=== PATIENT | female | born 1945 | race Caucasian/White ===

== ENCOUNTER 2020-02-11 12:14 | Inpatient (IN) ==
[2020-02-13] MEDS ORDERED: Ondansetron ODT 4 MG TAB.RAPDIS SL PRN (14:49)
[2020-02-13] MEDS ORDERED: ALPRAZolam 0.25 MG TABLET PO PRN (14:49)
[2020-02-13] MEDS: Carbidopa/Levodopa 25/100 TABLET PO SCH ×2 (16:55→20:21)
[2020-02-13] MEDS: carvediloL 6.25 MG TABLET PO SCH (16:55)
[2020-02-13] MEDS ORDERED: Bisacodyl 10 MG RECTAL SUPPOSITORY RC ONE (17:39)
[2020-02-13] MEDS: Sennosides 8.6 MG TABLET PO SCH (20:21)
[2020-02-13] MEDS ORDERED: Preparation H Ointment 57 GM TUBE RC PRN (21:30)
[2020-02-13] MEDS: Acetaminophen 325 MG TABLET PO PRN (21:42)
[2020-02-14 05:34] LABS: Basophils % 0.2 %; Eosinophils # 0.1 K/mcL (0.0-0.6); Eosinophils % 0.4 %; Hematocrit 36.6 % (35.3-44.9); Hemoglobin 12.3 g/dL (11.5-15.4); Immature Granulocytes % 0.7 % (0-4); Lymphocytes # 2.5 K/mcL (0.6-4.6); Lymphocytes % 14.7 %; Mean Corpuscular HGB Conc 33.6 g/dL (31.6-35.5); Mean Corpuscular Volume 89.3 fL (83.0-100.0); Mean Platelet Volume 9.8 fL (9.4-12.4); Monocytes # 1.2 K/mcL (0.0-1.3); Monocytes % 7.2 %; Neutrophils # 12.8 K/mcL (1.6-8.9); Platelet Count 303 K/mcL (140-400); Red Cell Distribution Width 12.4 % (11.5-14.5); Segmented Neutrophils % 76.8 %; White Blood Count 16.7 K/mcL (4.3-11.1)
[2020-02-14 05:48] LABS: Alanine Aminotransferase 31 Units/L (7-52); Albumin 3.4 g/dL (3.5-5.7); Albumin/Globulin Ratio 1.5 (1.1-2.2); Alkaline Phosphatase 43 Units/L (34-104); Aspartate Amino Transferase 26 Units/L (13-39); BUN/Creatinine Ratio 34 (6-26); Bilirubin,Total 0.3 mg/dL (0.3-1.0); Blood Urea Nitrogen 29 mg/dL (8-23); Calcium 9.3 mg/dL (8.6-10.3); Carbon Dioxide 29 mEq/L (23-29); Chloride 100 mEq/L (98-107); Globulin 2.3 g/dL (2.4-3.5); Glucose 97 mg/dL (70-105); Magnesium 2.2 mg/dL (1.6-2.6); Osmolality,Calculated 284 (280-300); Potassium 4.2 mEq/L (3.5-5.1); Sodium 134 mEq/L (136-145); Total Protein 5.7 g/dL (6.4-8.9); eGFR For African Americans > 60 (> 60); eGFR For Non-African Americans > 60 (> 60)
[2020-02-14] MEDS: *HR* Enoxaparin 30 MG/0.3 ML SYRINGE SQ SCH (05:51)
[2020-02-14] MEDS: Acetaminophen 325 MG TABLET PO PRN (05:58)
[2020-02-14] MEDS: carvediloL 6.25 MG TABLET PO SCH ×2 (07:51→14:12)
[2020-02-14] MEDS: Sennosides 8.6 MG TABLET PO SCH ×2 (07:52→20:25)
[2020-02-14] MEDS: polyethylene glycoL 3350 17 GM POWD.PACK PO SCH ×2 (07:52→12:30)
[2020-02-14] MEDS: Carbidopa/Levodopa 25/100 TABLET PO SCH ×3 (07:52→20:25)
[2020-02-14] MEDS ORDERED: predniSONE 20 MG TABLET PO SCH (09:00)
[2020-02-15 05:39] LABS: Hematocrit 34.2 % (35.3-44.9); Hemoglobin 11.4 g/dL (11.5-15.4); Mean Corpuscular HGB Conc 33.3 g/dL (31.6-35.5); Mean Corpuscular Hemoglobin 30.2 pg (28.0-33.3); Mean Corpuscular Volume 90.5 fL (83.0-100.0); Platelet Count 259 K/mcL (140-400); Red Blood Count 3.78 M/mcL (3.82-4.97); Red Cell Distribution Width 12.8 % (11.5-14.5); White Blood Count 14.3 K/mcL (4.3-11.1)
[2020-02-15] MEDS: *HR* Enoxaparin 30 MG/0.3 ML SYRINGE SQ SCH (06:12)
[2020-02-15] MEDS: Sennosides 8.6 MG TABLET PO SCH ×2 (07:46→21:50)
[2020-02-15] MEDS: polyethylene glycoL 3350 17 GM POWD.PACK PO SCH (07:46)
[2020-02-15] MEDS: carvediloL 6.25 MG TABLET PO SCH ×2 (07:53→17:29)
[2020-02-15] MEDS: Carbidopa/Levodopa 25/100 TABLET PO SCH ×3 (07:53→21:47)
[2020-02-15] MEDS: Acetaminophen 325 MG TABLET PO PRN ×2 (14:31→21:47)
[2020-02-15 14:40] LABS: Bilirubin,Urine Negative (Negative); Blood,Urine Negative (Negative); Clarity,Urine Clear (Clear); Color,Urine Yellow (Yellow); Glucose,Urine (UA) Normal (Normal); Ketones,Urine 15 mg/dL (Negative); Leukocyte Esterase,Urine Negative (Negative); Nitrite,Urine Negative (Negative); PH,Urine 5.5 pH Units (5.0-8.0); Protein,Urine 30 mg/dL (Neg-Trace); Specific Gravity,Urine 1.025 (1.010-1.025); Urobilinogen,Urine Normal (Normal)
[2020-02-15 14:43] LABS: Bacteria,Urine Few per hpf (None-Few); RBC,Urine 0-3 per hpf (0-3); Squamous Epithelial Cell,Urine Few per hpf (None-Few); WBC,Urine 0-3 per hpf (0-3)
[2020-02-16] MEDS: *HR* Enoxaparin 30 MG/0.3 ML SYRINGE SQ SCH (06:12)
[2020-02-16] MEDS: carvediloL 6.25 MG TABLET PO SCH ×2 (06:39→17:07)
[2020-02-16] MEDS: polyethylene glycoL 3350 17 GM POWD.PACK PO SCH (07:45)
[2020-02-16] MEDS: Sennosides 8.6 MG TABLET PO SCH ×2 (07:45→20:09)
[2020-02-16] MEDS: Carbidopa/Levodopa 25/100 TABLET PO SCH ×3 (07:46→20:09)
[2020-02-16] MEDS ORDERED: ALPRAZolam 0.25 MG TABLET PO PRN (13:15)
[2020-02-16] MEDS ORDERED: ALPRAZolam 0.5 MG TABLET PO PRN (13:30)
[2020-02-17] MEDS: *HR* Enoxaparin 30 MG/0.3 ML SYRINGE SQ SCH (05:25)
[2020-02-17 06:11] LABS: Hematocrit 33.3 % (35.3-44.9); Hemoglobin 10.8 g/dL (11.5-15.4); Mean Corpuscular HGB Conc 32.4 g/dL (31.6-35.5); Mean Corpuscular Hemoglobin 29.8 pg (28.0-33.3); Mean Corpuscular Volume 91.7 fL (83.0-100.0); Platelet Count 272 K/mcL (140-400); Red Blood Count 3.63 M/mcL (3.82-4.97); White Blood Count 9.4 K/mcL (4.3-11.1)
[2020-02-17 06:32] LABS: BUN/Creatinine Ratio 34 (6-26); Blood Urea Nitrogen 31 mg/dL (8-23); Calcium 8.9 mg/dL (8.6-10.3); Carbon Dioxide 31 mEq/L (23-29); Chloride 101 mEq/L (98-107); Glucose 98 mg/dL (70-105); Magnesium 2.4 mg/dL (1.6-2.6); Osmolality,Calculated 289 (280-300); Potassium 4.2 mEq/L (3.5-5.1); Sodium 136 mEq/L (136-145); eGFR For African Americans > 60 (> 60); eGFR For Non-African Americans > 60 (> 60)
[2020-02-17] MEDS: carvediloL 6.25 MG TABLET PO SCH ×2 (07:49→15:32)
[2020-02-17] MEDS: Sennosides 8.6 MG TABLET PO SCH ×2 (07:49→20:05)
[2020-02-17] MEDS: polyethylene glycoL 3350 17 GM POWD.PACK PO SCH (07:50)
[2020-02-17] MEDS: Carbidopa/Levodopa 25/100 TABLET PO SCH ×3 (07:50→20:06)
[2020-02-17] MEDS: Acetaminophen 325 MG TABLET PO PRN (13:00)
[2020-02-18] MEDS: *HR* Enoxaparin 30 MG/0.3 ML SYRINGE SQ SCH (05:05)
[2020-02-18] MEDS: Carbidopa/Levodopa 25/100 TABLET PO SCH ×3 (08:14→21:38)
[2020-02-18] MEDS: Sennosides 8.6 MG TABLET PO SCH ×2 (08:14→21:38)
[2020-02-18] MEDS: polyethylene glycoL 3350 17 GM POWD.PACK PO SCH (08:14)
[2020-02-18] MEDS: carvediloL 6.25 MG TABLET PO SCH ×2 (08:14→17:37)
[2020-02-18] MEDS: Acetaminophen 325 MG TABLET PO PRN (11:53)
[2020-02-19] MEDS: *HR* Enoxaparin 30 MG/0.3 ML SYRINGE SQ SCH (05:05)
[2020-02-19] MEDS: Sennosides 8.6 MG TABLET PO SCH ×2 (10:16→20:34)
[2020-02-19] MEDS: carvediloL 6.25 MG TABLET PO SCH ×3 (10:16→21:33)
[2020-02-19] MEDS: Carbidopa/Levodopa 25/100 TABLET PO SCH ×3 (10:17→20:34)
[2020-02-19] MEDS: polyethylene glycoL 3350 17 GM POWD.PACK PO SCH (10:17)
[2020-02-19] MEDS: Acetaminophen 325 MG TABLET PO PRN (20:34)
[2020-02-20] MEDS: *HR* Enoxaparin 30 MG/0.3 ML SYRINGE SQ SCH (04:42)
[2020-02-20] MEDS: Acetaminophen 325 MG TABLET PO PRN ×2 (04:42→20:28)
[2020-02-20] MEDS: polyethylene glycoL 3350 17 GM POWD.PACK PO SCH (08:46)
[2020-02-20] MEDS: Sennosides 8.6 MG TABLET PO SCH ×2 (08:47→20:27)
[2020-02-20] MEDS: carvediloL 6.25 MG TABLET PO SCH ×2 (08:54→15:51)
[2020-02-20] MEDS: Carbidopa/Levodopa 25/100 TABLET PO SCH ×3 (08:54→20:27)
[2020-02-20 15:01] LABS: Bilirubin,Urine Negative (Negative); Blood,Urine Negative (Negative); Clarity,Urine Clear (Clear); Color,Urine Yellow (Yellow); Glucose,Urine (UA) Normal (Normal); Ketones,Urine Negative (Negative); Leukocyte Esterase,Urine Negative (Negative); Nitrite,Urine Negative (Negative); Protein,Urine Negative (Neg-Trace); Specific Gravity,Urine 1.025 (1.010-1.025); Urobilinogen,Urine Normal (Normal)
[2020-02-20] MEDS: Melatonin 3 MG TABLET PO PRN (20:27)
[2020-02-21 05:11] LABS: Basophils # 0.1 K/mcL (0.0-0.2); Basophils % 0.7 %; Eosinophils # 0.5 K/mcL (0.0-0.6); Eosinophils % 5.3 %; Hemoglobin 10.8 g/dL (11.5-15.4); Immature Granulocytes % 1.5 % (0-4); Lymphocytes # 2.2 K/mcL (0.6-4.6); Lymphocytes % 23.7 %; Mean Corpuscular HGB Conc 32.7 g/dL (31.6-35.5); Mean Corpuscular Hemoglobin 29.9 pg (28.0-33.3); Mean Corpuscular Volume 91.4 fL (83.0-100.0); Mean Platelet Volume 9.5 fL (9.4-12.4); Monocytes # 0.8 K/mcL (0.0-1.3); Monocytes % 8.6 %; Neutrophils # 5.6 K/mcL (1.6-8.9); Platelet Count 286 K/mcL (140-400); Red Blood Count 3.61 M/mcL (3.82-4.97); Red Cell Distribution Width 12.9 % (11.5-14.5); Segmented Neutrophils % 60.2 %; White Blood Count 9.4 K/mcL (4.3-11.1)
[2020-02-21 05:24] LABS: BUN/Creatinine Ratio 29 (6-26); Blood Urea Nitrogen 27 mg/dL (8-23); Carbon Dioxide 28 mEq/L (23-29); Chloride 105 mEq/L (98-107); Glucose 93 mg/dL (70-105); Osmolality,Calculated 289 (280-300); Potassium 4.3 mEq/L (3.5-5.1); Sodium 137 mEq/L (136-145); eGFR For African Americans > 60 (> 60); eGFR For Non-African Americans 59 (> 60)
[2020-02-21] MEDS: *HR* Enoxaparin 30 MG/0.3 ML SYRINGE SQ SCH (06:45)
[2020-02-21] MEDS: Sennosides 8.6 MG TABLET PO SCH ×2 (09:49→20:22)
[2020-02-21] MEDS: carvediloL 6.25 MG TABLET PO SCH ×2 (09:49→16:05)
[2020-02-21] MEDS: Carbidopa/Levodopa 25/100 TABLET PO SCH ×3 (09:49→20:23)
[2020-02-21] MEDS: polyethylene glycoL 3350 17 GM POWD.PACK PO SCH (09:49)
[2020-02-21] MEDS: Acetaminophen 325 MG TABLET PO PRN (12:17)
[2020-02-22] MEDS: *HR* Enoxaparin 40 MG/0.4 ML SYRINGE SQ SCH (04:53)
[2020-02-22] MEDS: Acetaminophen 325 MG TABLET PO PRN (04:53)
[2020-02-22] MEDS: Carbidopa/Levodopa 25/100 TABLET PO SCH ×3 (08:40→21:17)
[2020-02-22] MEDS: Sennosides 8.6 MG TABLET PO SCH ×2 (08:41→21:17)
[2020-02-22] MEDS: polyethylene glycoL 3350 17 GM POWD.PACK PO SCH (08:41)
[2020-02-22] MEDS: carvediloL 6.25 MG TABLET PO SCH ×2 (08:41→17:46)
[2020-02-22] MEDS: Melatonin 3 MG TABLET PO PRN (21:18)
[2020-02-23] MEDS: Acetaminophen 325 MG TABLET PO PRN (04:06)
[2020-02-23] MEDS: *HR* Enoxaparin 40 MG/0.4 ML SYRINGE SQ SCH (04:06)
[2020-02-23] MEDS: carvediloL 6.25 MG TABLET PO SCH ×2 (08:06→16:46)
[2020-02-23] MEDS: Carbidopa/Levodopa 25/100 TABLET PO SCH ×3 (08:06→21:35)
[2020-02-23] MEDS: Sennosides 8.6 MG TABLET PO SCH ×2 (08:06→14:50)
[2020-02-23] MEDS: polyethylene glycoL 3350 17 GM POWD.PACK PO SCH (08:06)
[2020-02-23] MEDS: Melatonin 3 MG TABLET PO PRN (21:35)
[2020-02-24] MEDS: Acetaminophen 325 MG TABLET PO PRN (02:25)
[2020-02-24] MEDS: *HR* Enoxaparin 40 MG/0.4 ML SYRINGE SQ SCH (05:27)
[2020-02-24] MEDS: polyethylene glycoL 3350 17 GM POWD.PACK PO SCH (09:20)
[2020-02-24] MEDS: Carbidopa/Levodopa 25/100 TABLET PO SCH ×3 (09:20→20:45)
[2020-02-24] MEDS: Sennosides 8.6 MG TABLET PO SCH ×2 (09:20→20:46)
[2020-02-24] MEDS: carvediloL 6.25 MG TABLET PO SCH ×2 (09:20→16:41)
[2020-02-24] MEDS: Melatonin 3 MG TABLET PO PRN (20:46)
[2020-02-25] MEDS: Acetaminophen 325 MG TABLET PO PRN ×2 (05:15→21:31)
[2020-02-25] MEDS: *HR* Enoxaparin 40 MG/0.4 ML SYRINGE SQ SCH (05:15)
[2020-02-25] MEDS: carvediloL 6.25 MG TABLET PO SCH ×2 (09:51→17:06)
[2020-02-25] MEDS: Carbidopa/Levodopa 25/100 TABLET PO SCH ×4 (09:52→21:31)
[2020-02-25] MEDS: polyethylene glycoL 3350 17 GM POWD.PACK PO SCH (09:53)
[2020-02-25] MEDS: Sennosides 8.6 MG TABLET PO SCH ×2 (09:53→21:33)
[2020-02-25] MEDS ORDERED: E-Z-HD (BARIUM SULF) SUSPENSION PO ONE (15:24)
[2020-02-25] MEDS ORDERED: E-Z-PAQUE (BARIUM SULF) SUSP 1 BOTTLE PO ONE (15:24)
[2020-02-25] MEDS: Melatonin 3 MG TABLET PO PRN (21:31)
[2020-02-26] MEDS: *HR* Enoxaparin 40 MG/0.4 ML SYRINGE SQ SCH (06:05)
[2020-02-26] MEDS: polyethylene glycoL 3350 17 GM POWD.PACK PO SCH (09:43)
[2020-02-26] MEDS: Carbidopa/Levodopa 25/100 TABLET PO SCH ×3 (09:43→20:54)
[2020-02-26] MEDS: carvediloL 6.25 MG TABLET PO SCH ×2 (09:43→16:49)
[2020-02-26] MEDS: Sennosides 8.6 MG TABLET PO SCH ×2 (09:43→20:55)
[2020-02-26] MEDS: Acetaminophen 325 MG TABLET PO PRN (11:57)
[2020-02-26] MEDS: Melatonin 3 MG TABLET PO PRN (20:55)
[2020-02-27] MEDS: *HR* Enoxaparin 40 MG/0.4 ML SYRINGE SQ SCH (04:07)
[2020-02-27] MEDS: Carbidopa/Levodopa 25/100 TABLET PO SCH ×3 (08:10→22:06)
[2020-02-27] MEDS: Sennosides 8.6 MG TABLET PO SCH ×2 (08:10→22:06)
[2020-02-27] MEDS: carvediloL 6.25 MG TABLET PO SCH ×2 (08:10→17:16)
[2020-02-27] MEDS: polyethylene glycoL 3350 17 GM POWD.PACK PO SCH (08:11)
[2020-02-27] MEDS: Acetaminophen 325 MG TABLET PO PRN (10:52)
[2020-02-27] MEDS: Melatonin 3 MG TABLET PO PRN (22:06)
[2020-02-28] MEDS: *HR* Enoxaparin 40 MG/0.4 ML SYRINGE SQ SCH (04:42)
[2020-02-28] MEDS: carvediloL 6.25 MG TABLET PO SCH ×2 (09:13→17:44)
[2020-02-28] MEDS: Sennosides 8.6 MG TABLET PO SCH ×2 (09:13→20:27)
[2020-02-28] MEDS: polyethylene glycoL 3350 17 GM POWD.PACK PO SCH (09:13)
[2020-02-28] MEDS: Carbidopa/Levodopa 25/100 TABLET PO SCH ×3 (09:16→20:28)
[2020-02-28] MEDS: Acetaminophen 325 MG TABLET PO PRN (09:16)
[2020-02-28] MEDS: Melatonin 3 MG TABLET PO PRN (20:28)
[2020-02-29] MEDS: Acetaminophen 325 MG TABLET PO PRN ×2 (03:47→10:16)
[2020-02-29] MEDS: *HR* Enoxaparin 40 MG/0.4 ML SYRINGE SQ SCH (04:43)
[2020-02-29 05:16] LABS: Hematocrit 32.6 % (35.3-44.9); Hemoglobin 10.6 g/dL (11.5-15.4); Mean Corpuscular HGB Conc 32.5 g/dL (31.6-35.5); Mean Corpuscular Hemoglobin 29.6 pg (28.0-33.3); Mean Corpuscular Volume 91.1 fL (83.0-100.0); Mean Platelet Volume 9.5 fL (9.4-12.4); Platelet Count 253 K/mcL (140-400); Red Blood Count 3.58 M/mcL (3.82-4.97); Red Cell Distribution Width 13.1 % (11.5-14.5); White Blood Count 6.8 K/mcL (4.3-11.1)
[2020-02-29 05:32] LABS: Alanine Aminotransferase 9 Units/L (7-52); Albumin 3.4 g/dL (3.5-5.7); Albumin/Globulin Ratio 1.5 (1.1-2.2); Alkaline Phosphatase 50 Units/L (34-104); Aspartate Amino Transferase 11 Units/L (13-39); BUN/Creatinine Ratio 25 (6-26); Bilirubin,Total 0.3 mg/dL (0.3-1.0); Blood Urea Nitrogen 27 mg/dL (8-23); Calcium 8.9 mg/dL (8.6-10.3); Carbon Dioxide 25 mEq/L (23-29); Chloride 106 mEq/L (98-107); Globulin 2.3 g/dL (2.4-3.5); Glucose 93 mg/dL (70-105); Magnesium 2.1 mg/dL (1.6-2.6); Osmolality,Calculated 291 (280-300); Potassium 4.4 mEq/L (3.5-5.1); Sodium 138 mEq/L (136-145); Total Protein 5.7 g/dL (6.4-8.9); eGFR For African Americans > 60 (> 60); eGFR For Non-African Americans 50 (> 60)
[2020-02-29] MEDS: Carbidopa/Levodopa 25/100 TABLET PO SCH ×3 (08:01→20:32)
[2020-02-29] MEDS: Sennosides 8.6 MG TABLET PO SCH ×2 (08:01→20:33)
[2020-02-29] MEDS: carvediloL 6.25 MG TABLET PO SCH ×2 (08:01→17:42)
[2020-02-29] MEDS: polyethylene glycoL 3350 17 GM POWD.PACK PO SCH (08:02)
[2020-03-01] MEDS: *HR* Enoxaparin 40 MG/0.4 ML SYRINGE SQ SCH (06:49)
[2020-03-01] MEDS: carvediloL 6.25 MG TABLET PO SCH ×2 (09:22→17:08)
[2020-03-01] MEDS: Carbidopa/Levodopa 25/100 TABLET PO SCH ×3 (09:22→20:26)
[2020-03-01] MEDS: Sennosides 8.6 MG TABLET PO SCH ×2 (09:25→20:27)
[2020-03-01] MEDS: polyethylene glycoL 3350 17 GM POWD.PACK PO SCH (09:25)
[2020-03-01] MEDS: Melatonin 3 MG TABLET PO PRN (20:26)
[2020-03-01] MEDS: Acetaminophen 325 MG TABLET PO PRN (20:26)
[2020-03-02] MEDS: *HR* Enoxaparin 40 MG/0.4 ML SYRINGE SQ SCH (05:44)
[2020-03-02] MEDS: Sennosides 8.6 MG TABLET PO SCH (08:14)
[2020-03-02] MEDS: carvediloL 6.25 MG TABLET PO SCH (08:14)
[2020-03-02] MEDS: polyethylene glycoL 3350 17 GM POWD.PACK PO SCH (08:15)
[2020-03-02] MEDS: Carbidopa/Levodopa 25/100 TABLET PO SCH (08:15)
[2020-03-02 10:32] VITALS: BP 149/76
== END 2020-03-02 11:10 | disposition home health service (06) | DRG 56 ==
LOC: INPGRE 02-13 13:08
PROVIDERS: ADMIT Family Medicine; ATTEND Family Medicine

== ENCOUNTER 2020-12-22 10:53 | Inpatient (IN) ==
[2020-12-23] MEDS ORDERED: Ondansetron ODT 4 MG TAB.RAPDIS SL PRN (13:14)
[2020-12-23] MEDS: Carbidopa/Levodopa 25/100 TABLET PO SCH ×2 (16:16→19:36)
[2020-12-23] MEDS ORDERED: LACTOSE REDUCED FOOD PO SCH (17:00)
[2020-12-23] MEDS: Sennosides/Docusate Sodium TABLET PO SCH (19:36)
[2020-12-23] MEDS: Melatonin 3 MG TABLET PO PRN (19:36)
[2020-12-24] MEDS: Acetaminophen 325 MG TABLET PO PRN ×2 (02:01→23:51)
[2020-12-24 05:09] LABS: Basophils # 0.1 K/mcL (0.0-0.2); Basophils % 0.8 %; Eosinophils # 0.3 K/mcL (0.0-0.6); Hemoglobin 11.1 g/dL (11.5-15.4); Immature Granulocytes % 0.3 % (0-4); Lymphocytes % 22.8 %; Mean Corpuscular HGB Conc 31.7 g/dL (31.6-35.5); Mean Corpuscular Hemoglobin 28.8 pg (28.0-33.3); Mean Corpuscular Volume 90.9 fL (83.0-100.0); Mean Platelet Volume 9.1 fL (9.4-12.4); Monocytes # 0.6 K/mcL (0.0-1.3); Monocytes % 6.9 %; Neutrophils # 5.7 K/mcL (1.6-8.9); Platelet Count 248 K/mcL (140-400); Red Blood Count 3.85 M/mcL (3.82-4.97); Red Cell Distribution Width 12.5 % (11.5-14.5); Segmented Neutrophils % 66.2 %; White Blood Count 8.6 K/mcL (4.3-11.1)
[2020-12-24 05:34] LABS: Alanine Aminotransferase 3 Units/L (7-52); Albumin 3.5 g/dL (3.5-5.7); Albumin/Globulin Ratio 1.4 (1.1-2.2); Alkaline Phosphatase 45 Units/L (34-104); Aspartate Amino Transferase 19 Units/L (13-39); BUN/Creatinine Ratio 37 (6-26); Bilirubin,Total 0.2 mg/dL (0.3-1.0); Blood Urea Nitrogen 30 mg/dL (8-23); Carbon Dioxide 31 mEq/L (23-29); Chloride 104 mEq/L (98-107); Globulin 2.5 g/dL (2.4-3.5); Glucose 96 mg/dL (70-105); Magnesium 2.1 mg/dL (1.6-2.6); Osmolality,Calculated 294 (280-300); Potassium 4.1 mEq/L (3.5-5.1); Sodium 139 mEq/L (136-145); eGFR For African Americans > 60 (> 60); eGFR For Non-African Americans > 60 (> 60)
[2020-12-24] MEDS: *HR* Enoxaparin 30 MG/0.3 ML SYRINGE SQ SCH (06:19)
[2020-12-24] MEDS: Cholecalciferol (D-3) 1,000 UNIT (25MCG) TABLET PO SCH (09:04)
[2020-12-24] MEDS: Sennosides/Docusate Sodium TABLET PO SCH ×2 (09:05→19:45)
[2020-12-24] MEDS: Carbidopa/Levodopa 25/100 TABLET PO SCH ×3 (09:05→19:46)
[2020-12-24] MEDS: Melatonin 3 MG TABLET PO PRN (19:46)
[2020-12-25] MEDS: *HR* Enoxaparin 30 MG/0.3 ML SYRINGE SQ SCH (04:41)
[2020-12-25] MEDS: Sennosides/Docusate Sodium TABLET PO SCH ×2 (07:31→22:48)
[2020-12-25] MEDS: Carbidopa/Levodopa 25/100 TABLET PO SCH ×3 (07:32→22:49)
[2020-12-25] MEDS: Cholecalciferol (D-3) 1,000 UNIT (25MCG) TABLET PO SCH (07:32)
[2020-12-25] MEDS: lisinopriL 10 MG TABLET PO SCH (10:05)
[2020-12-25] MEDS: Melatonin 3 MG TABLET PO PRN (22:49)
[2020-12-26] MEDS: Acetaminophen 325 MG TABLET PO PRN (03:37)
[2020-12-26] MEDS: *HR* Enoxaparin 30 MG/0.3 ML SYRINGE SQ SCH (03:37)
[2020-12-26] MEDS: Carbidopa/Levodopa 25/100 TABLET PO SCH ×3 (07:57→21:20)
[2020-12-26] MEDS: Sennosides/Docusate Sodium TABLET PO SCH ×2 (07:59→21:19)
[2020-12-26] MEDS: Cholecalciferol (D-3) 1,000 UNIT (25MCG) TABLET PO SCH (07:59)
[2020-12-26] MEDS: Melatonin 3 MG TABLET PO PRN (21:45)
[2020-12-27] MEDS: *HR* Enoxaparin 30 MG/0.3 ML SYRINGE SQ SCH (06:34)
[2020-12-27] MEDS: Carbidopa/Levodopa 25/100 TABLET PO SCH ×3 (07:58→19:59)
[2020-12-27] MEDS: Cholecalciferol (D-3) 1,000 UNIT (25MCG) TABLET PO SCH (07:59)
[2020-12-27] MEDS: lisinopriL 10 MG TABLET PO SCH (08:03)
[2020-12-27] MEDS: Sennosides/Docusate Sodium TABLET PO SCH ×3 (08:03→19:59)
[2020-12-27] MEDS: Acetaminophen 325 MG TABLET PO PRN (10:45)
[2020-12-27] MEDS: polyethylene glycoL 3350 17 GM POWD.PACK PO SCH (20:15)
[2020-12-28] MEDS: *HR* Enoxaparin 30 MG/0.3 ML SYRINGE SQ SCH (05:29)
[2020-12-28] MEDS: Sennosides/Docusate Sodium TABLET PO SCH ×2 (08:33→19:48)
[2020-12-28] MEDS: Cholecalciferol (D-3) 1,000 UNIT (25MCG) TABLET PO SCH (08:33)
[2020-12-28] MEDS: Carbidopa/Levodopa 25/100 TABLET PO SCH ×3 (08:33→19:48)
[2020-12-28] MEDS: polyethylene glycoL 3350 17 GM POWD.PACK PO SCH ×2 (08:33→15:16)
[2020-12-28] MEDS: lisinopriL 10 MG TABLET PO SCH (08:33)
[2020-12-28] MEDS: Acetaminophen 325 MG TABLET PO PRN (12:30)
[2020-12-28] MEDS: Melatonin 3 MG TABLET PO PRN (19:51)
[2020-12-29] MEDS: *HR* Enoxaparin 30 MG/0.3 ML SYRINGE SQ SCH (04:17)
[2020-12-29] MEDS: Cholecalciferol (D-3) 1,000 UNIT (25MCG) TABLET PO SCH (09:35)
[2020-12-29] MEDS: Acetaminophen 325 MG TABLET PO PRN (09:35)
[2020-12-29] MEDS: Carbidopa/Levodopa 25/100 TABLET PO SCH ×3 (09:36→19:47)
[2020-12-29] MEDS: Sennosides/Docusate Sodium TABLET PO SCH ×2 (09:36→19:48)
[2020-12-29] MEDS: polyethylene glycoL 3350 17 GM POWD.PACK PO SCH (09:36)
[2020-12-29] MEDS: Ibuprofen 400 MG TABLET PO PRN (14:29)
[2020-12-29] MEDS: Melatonin 3 MG TABLET PO PRN (19:49)
[2020-12-30] MEDS: *HR* Enoxaparin 30 MG/0.3 ML SYRINGE SQ SCH (05:24)
[2020-12-30] MEDS: polyethylene glycoL 3350 17 GM POWD.PACK PO SCH (08:01)
[2020-12-30] MEDS: Sennosides/Docusate Sodium TABLET PO SCH (08:01)
[2020-12-30] MEDS: Carbidopa/Levodopa 25/100 TABLET PO SCH ×2 (08:05→14:18)
[2020-12-30] MEDS: Cholecalciferol (D-3) 1,000 UNIT (25MCG) TABLET PO SCH (08:05)
[2020-12-30] MEDS: Ibuprofen 400 MG TABLET PO PRN (09:54)
[2020-12-30 11:25] VITALS: BP 159/85
== END 2020-12-30 14:23 | disposition home or self-care (01) | DRG 945 ==
LOC: INPGRE 12-23 12:29
PROVIDERS: ADMIT Family Medicine; ATTEND Family Medicine